=== PATIENT | male | born 1950 | race Caucasian/White ===

== ENCOUNTER 2021-07-06 07:03 | Day surgery (SDC) | payer OTHER ==
[2021-07-06 07:30] VITALS: BP 199/101
--- NOTE | 2021-07-06 08:00 | NUR ---
PT TO ROOM 274 AMBULATORY WITH ANR NURSECARLOS. CONSENT OBTAINED. VS OBTAINED. DR ALMODOVAR NOTIFIED. NEW ORDERS RECEIVED. IV ESTABLISHED. LABS OBTAINED AND SENT TO LAB FOR REFERENCE. ADMISSION ASSESSMENT COMPLETED AT THIS TIME. PT ORIENTED TO ROOM AND UNIT. CALL LIGHT IN REACH. WILL CONTINUE TOMONITOR.
[2021-07-06 08:34] LABS: HEMATOCRIT 37.4 % (39.0-50.0); HEMOGLOBIN 11.9 g/dl (14.0-18.0); IMMATURE GRANULOCYTES 0.4 % (0.0-5.0); MEAN CELL VOLUME 102.2 fL CALC (80.0-100.0); MEAN CORPUSCULAR HGB 32.5 pG CALC (26.0-32.0); MEAN CORPUSCULAR HGB CONC 31.8 g/dL CAL (32.0-36.0); NEUT# 5.21 thou/uL (1.82-7.42); RED BLOOD COUNT 3.66 mill/uL (4.70-6.10); RED CELL DISTRI WIDTH 12.7 % (11.5-15.5)
[2021-07-06 08:43] LABS: ALBUMIN 4.2 g/dL (3.2-5.0); ALKALINE PHOSPHATASE 87 u/l (38-126); ANION GAP 11 (6-22 (CALC)); BILIRUBIN, TOTAL 0.6 mg/dL (0.0-1.4); BUN 13 mg/dL (8-23); BUN/CREATININE RATIO 18 (12-20 (CALC)); CARBON DIOXIDE 29 mmol/l (22-30); CHLORIDE 100 mmol/l (95-108); CREATININE 0.7 mg/dL (0.7-1.3); GFR > 60 ML/MIN (>=60 (CALC)); GFR FOR AFR.AMER. > 60 ML/MIN (>=60 (CALC)); POTASSIUM 4.2 mmol/l (3.5-5.1); SGOT/AST 31 u/l (19-48); SODIUM 136 mmol/l (137-146); TOTAL PROTEIN 7.6 g/dL (6.3-8.2)
[2021-07-06 09:30] VITALS: BP 180/90
[2021-07-06] MEDS ORDERED: LISINOPRIL10 MG PO (09:51)
--- NOTE | 2021-07-06 10:00 | NUR ---
VS REASSESSED. DR ALMODOVAR NOTIFIED. NEW ORDERS RECEIVED.
--- NOTE | 2021-07-06 12:20 | NUR ---
PTTO ANR PROCEDURE VIA BED.
--- NOTE | 2021-07-06 12:30 | NUR ---
PT WAS TRANSPORTED DOWN VIA BED FOR ANR PROCEDURE
--- NOTE | 2021-07-06 17:40 | NUR ---
PT RETURNED TO FLOOR VIA BED IN STABLE CONDITION ACCOMPANIED BY ANR STAFF AND CHOIR TEACHER.
[2021-07-06 18:05] VITALS: BP 140/81
[2021-07-06 18:20] VITALS: BP 153/94
[2021-07-06 18:35] VITALS: BP 155/92
[2021-07-06 18:50] VITALS: BP 160/67
--- NOTE | 2021-07-06 20:00 | NUR ---
PTIN BED AT THIS TIME. REPORT RECEIVED FROM OFF GOING DAY SHIFT. PT NOTED TO BE VERY ANXIOUS/RESTLESS. MEDICATEDPT AT 1906 WITH ATIVAN 2MG IV. PTTOLERATED WELL. PT HAS NEEDED TO BE SUCTIONED X 2 FOR PHLEM NOTEDIN THE BACK OF HIS THROAT. PT TOLERATED SUCTIONING WELL. NO S/S OF DISTRESS NOTED. SLIGHT DIAPHORESIS NOTED, COOL CLOTH APPLIED TO PT HEAD FOR COMFORT. WILL MONITOR FOR S/S OF WITHDRAWL. SAFETY PRECAUTIONS IN PLACE, BED IN LOW POSITION, CALL LIGHT WITHIN REACH, BED ALARM ACTIVATED. ASSIGNED COURSEWARE DEVELOPER IS WATCHING PATIENT IN DOORWAY FOR ADDED SAFETY AND MONITORING
--- NOTE | 2021-07-07 00:23 | NUR ---
PT IS RESTING QUIETLY WITH SLIGHT RESTLESSNESS NOTED. PT IS NOTED TO BEUNABLE TO SWALLOW EFECTIVELY, FREQUENT SUCTION INDICATED. PER ASSISTANT COMMUNITY MANAGER, HOLD PO MEDICATIONS AT THIS TIME. IV LORAZEPAM TO BE ADMINSTERED TO CONTROL ANY SYMPTOMSOFWITHDRAWL NOTED. PT DOES HAVE SOME DIAPHORESIS ALONG WITH RESTLESSNESS. WILL MONITOR FOR WORSENING S/S. SAFETY PRECAUTIONS IN PLACE, CALL LIGHT WITHIN REACH, BED IN LOW POSITION, BED ALARM ACTIVATED. ASSISTANT COMMUNITY MANAGER IS SITTING OUTSIDE PT ROOM MONITORING HIM AT THIS TIME.
--- NOTE | 2021-07-07 02:37 | NUR ---
NOTED PT GAGGING AND DRY HEAVING, SUCTION UTILIZED. ADMINSTERED 8MG OF ZOFRAAN IV FOR DRY HEAVING. PT PLACED IN RESCUE POSITION ON RIGHT SIDE. LARGE AMOUNT OF PHLEM SUCTIONED FROM THROAT. IRRIGATION LABORER AT BEDSIDE. SAFETY PRECAUTIONS REMAIN IN PLACE. WILL MONITOR.
[2021-07-07 04:05] VITALS: BP 171/87
--- NOTE | 2021-07-07 04:45 | NUR ---
ATTEMPTED TO ADMINSTER PO MEDS. AT THIS TIME PT IS STILL NOT SWALLOWING WELL, ENCOUIRAGED PO FLUIDS AND CRUSHED MEDICATIONS INTO PUDDING PER POLISHER APPRENTICE INSTRUCTIONS. PT IS NOT TAKING IN FLUIDS, STILL GAGGING ON SMALL AMOUNTS OF PHLEM REQUIRING SUCTION. WILL ATTEMPT TO ADMINSTER MEDS AGAIN IN A LITTLE WHILE. SAFETY PRECAUTIONS REMAIN IN PLACE, CALL LIGHT WITHIN REACH, BED IN LOW POSITION, BED ALARM ON. WILL CONTINUE TO MONITOR FOR ANY COMPLICATIONS.
--- NOTE | 2021-07-07 06:09 | NUR ---
PT REMAINS TOO LETHARGIC TO TAKE HIS MEDICATIONS, PT ISNOT SWALLOWING ANY FLUIDS. NOTED THAT PT ISNOW SWALLOWINGHIS SALIVA BUT WILL NOT SWALLOW ANYTHING ELSE. MEDICATIONS DESTROYED WITH WITNESS. FILM VAULT SUPERVISOR AWARE AND HE HASINDICATED HE WILL PUT NEW ORDERS IN FOR MEDICATIONS AT A LATER TIME. WILL MONITOR
--- NOTE | 2021-07-07 06:34 | NUR ---
AFTER MUCH INSISTENCE, PT FINALLY CAME AROUND AND WASMORE ALERT THAN PREVIOUSLY. PT WASABLE TO TAKE PO FLUIDS AND THEN WAS ABLE TO TAKE PO MEDICATIONS PER ORDER. MANAGER OPERATIONS RESEARCH AWARE THAT MEDS WERE GIVEN LATER THAN SCHEDULED. PT TOLERATED WELL. NO S/S OF CHOKING/ASPIRATION NOTED. SAFETY MEASURES REMAIN IN PLACE. WILL MONITOR
[2021-07-07 06:37] LABS: ANION GAP 16 (6-22 (CALC)); BUN 13 mg/dL (8-23); BUN/CREATININE RATIO 21 (12-20 (CALC)); CHLORIDE 104 mmol/l (95-108); CREATININE 0.6 mg/dL (0.7-1.3); GFR > 60 ML/MIN (>=60 (CALC)); GFR FOR AFR.AMER. > 60 ML/MIN (>=60 (CALC)); MAGNESIUM 1.8 mg/dL (1.6-2.3); POTASSIUM 4.2 mmol/l (3.5-5.1); SODIUM 137 mmol/l (137-146)
[2021-07-07 06:38] LABS: CARBON DIOXIDE 21 mmol/l (22-30)
--- NOTE | 2021-07-07 07:00 | NUR ---
PT REPORT RECEIVED FROM NIGHT NURSENISHA
--- NOTE | 2021-07-07 08:00 | NUR ---
PT WAS FOUND RESTING IN BED;PT APPEARS VERY DROWSY;VS AND ASSESSMENT WERE COMPLETED;HEART SOUNDS ARE REGULAR IN RATE AND RHYTHM;LUNG SOUNDS ARE CLEAR;RESPIRATIONS ARE EVEN AND UNLABORED ON O2@2L VIA NC;ABDOMEN IS SOFT WITH ACTIVE BS PRESENT IN ALL QUADRANTS;PT IS SLIGHTLY DIAPHORETIC AND RESTLESS AT THIS TIME;VINCENT MORRELL IS AWARE;#20G IV IN RH IS RUNNING LR@75ML/HR;IV SITE IS PATENT AND APPEARS FREE OF COMPLICATIONS AT THIS TIME;#18G IV IN LH IS SL,PATENT AND APPERS FREE OF COMPLICATIONS WELL;SAFETY PRECAUTIONS IN PLACE;BED ALARM ON AND IN LOWEST POSITION;CALL LIGHT WITHIN REACH;WILL CONTINUE TO MONITOR CLOSELY.
--- NOTE | 2021-07-07 09:00 | NUR ---
PT MORNING MEDICATIONS WERE HELD PER VINCENT MORRELL AT THIS TIME;PROTONIX IV WAS STILL GIVEN SCHEDULED;PT WAS CLEANED UP OF INCONTINENT URINE AT THIS TIME WELL;PT CONTINUES TO REST COMFORTABLY WITH BED ALARM ON AND IN LOWEST POSITION;WILL CONTINUE TO MONITOR CLOSELY
[2021-07-07 10:00] VITALS: BP 164/74
--- NOTE | 2021-07-07 12:15 | NUR ---
PT CLEANED UP OF LOOSE BM AND BED CHANGE DONE;PT RESTING COMFORTABLY AT THIS TIME;SAFETY PRECAUTIONS IN PLACE;BED ALARM ON AND IN LOWEST POSITION;CALL LIGHT WITHIN REACH;WILL CONTINUE TO MONITOR.
--- NOTE | 2021-07-07 12:20 | NUR ---
AND VINCENT MORRELL AT BEDSIDE WITH PT
[2021-07-07 14:00] VITALS: BP 178/85
[2021-07-07 15:25] VITALS: BP 162/75
--- NOTE | 2021-07-07 16:08 | NUR ---
PT IS SLEEPING IN BED;O2 VIA NC HAS BEEN REMOVED AND O2 SATS ARE STABLE @98%;RESPIRATIONS ARE EVEN AND UNLABORED;#20G IV IN IS INFUSING LR WITHOUT DIFFICULTIES;IV SITE IS PATENT AND APPEARS FREE OF COMPLICATIOMS AT THIS TIME;SAFETY PRECAUTIONS IN PLACE;BED ALARM ON AND IN LOWEST POSITION;CALL LIGHT WITHOUT REACH;WILL CONTINUE TO MONITOR.
--- NOTE | 2021-07-07 17:00 | NUR ---
PT AMBULATED WITH ASSISTANCE TO BEDSIDE COMMODE;PT HAD A MODERATE LOOSE BM;PT RETURNED TO BED AND IS RESTING COMFORTABLY AT THIS TIME;SAFETY PRECAUTIONS IN PLACE;BED ALARM ON AND IN LOWEST POSITION;WILL CONTINUE TO MONITOR CLOSELY
--- NOTE | 2021-07-07 18:15 | NUR ---
PT REMOVED HIS LH IV EARLIER IN THE DAY, BUT MAINTAINED HIS IV IN HIS RH WITH LR RUNNING;PT WAS REMOVING HIS RH IV JUST I STEPPED IN THE ROOM;PETROS KAUR WAS NOTIFIED AND HE STATED THAT WE WOULD NOT NEED TO START ANOTHER IV AT THIS TIME, JUST ENCOURAGE ORAL FLUID INTAKE;WILL CONTINUE TO MONITOR.
--- NOTE | 2021-07-07 19:00 | NUR ---
PT WAS ABLE TO DRINK A GINGERALE AND EAT A FRUIT CUP FROM HIS DINNER TRAY;PT TOLERATED WELL
--- NOTE | 2021-07-07 19:08 | NUR ---
AT BEDSIDE WITH PT
--- NOTE | 2021-07-07 20:06 | NUR ---
PT PHYSICIAN JUST MADE ROUNDS ON PT, NO NEW ORDERS RECIEVED AT THIS TIME. PER PHYSICIAN POSSIBLE DISCHARGE TOMORROW. PHYSICIAN INDICATED TO ENCOURAGE FLUIDS AND FOOD WITH PT. SAFETY PRECAUTIONS REMAIN IN PLACE, BED IN LOW POSITION, CALLLIGHT WITHIN REACH, BED ALARM SET. INSTRUCTED PT TO USE CALL LIGHT WHEN HE NEEDS TO GO TO THE TOILET. PT INDICATED UNDERSTANDING. WILL MONITOR
--- NOTE | 2021-07-07 20:15 | NUR ---
PTPULLEDOUT BOTH OF HIS IV'S DURING DAY SHIFT TODAY. THE ONLY MEDICATIONS THE PT HAS ORDERED AT PRN IV MEDICATIONS. PHONE CALL PLACED TO DR. ALMODOVAR ADVISING OF THE NEED FOR PRN PO MEDS OR PRN IM MEDS. PENDING RETURN CALL AT THIS TIME. PT IS CALM AT THISTIME BUT IS REQUESTING SOMETHING TO HELP HIM SLEEP. WILL MONITOR
[2021-07-07 20:45] VITALS: BP 185/88
[2021-07-07 23:53] VITALS: BP 177/64
--- NOTE | 2021-07-07 23:55 | NUR ---
PT RESTING QUIETLY AT THIS TIME. BREATHING EVEN AND UNLABORED. FREQUENT LOOSE STOOLING NOTED. NO COMPLAINTS VOICED. DENIES PAIN. PT VERY DROWSY. SAFETY PRECUATIONS REMAIN IN PLACE, BED IN LOW POSITION, CALLLIGHT WITHIN REACH, BEDSIDE COMMODE CLOSE TO BED, AND BED ALARM SET. WILL MONITOR
--- NOTE | 2021-07-08 01:46 | NUR ---
PT NOTEDTO BECOME INCREASINGLY RESTLESS AND REPORTED THAT HE IS HAVING DIFFICULTY SLEEPING. PT HAS ALSO BEEN REFUSING TO DRINK PO FLUIDS. NEW IV STARTED TO LAC DUE TO NEED FOR FLUIDS AND ADMINSTRQATION OF ATIVAN. PTTOLERATED WELL. RESTING QUIETLY AT THIS TIME. WILL CONTINUE TO MONITOR
--- NOTE | 2021-07-08 03:57 | NUR ---
PT RESTING QUIETLY, VOIDED VIA THE URINAL 200ML WITH MINIMAL STAFF ASSIST, URINE NOTEDTO BE DARK YELLOW IN COLOR. ORDERED PRN LACTATED RINGERS RESTARTED VIA IV DUE TO PT NOT TAKING IN ANY PO FLUIDS THIS SHIFT. LR RUNNING AT 50ML/HR VIA IV TO PROMOTE HYDRATION. PT TOLERATING WELL. B/P SLIGHTLY ELEVATED @ 153/91. AWARE OF HTN HX. PT REAMINS ON RA 99%. SAFETY PRECAUTIONS REMAIN IN PLACE, BED IN LOW POSITION, CALL LIGHT WITHIN REACH, BEDSIDE COMMODE CLOSE TO BED. PT DENIES PAIN AT THIS TIME. WILL MONITOR
[2021-07-08 04:13] VITALS: BP 153/91
--- NOTE | 2021-07-08 05:10 | NUR ---
IV SITE TO LAC NOTED TO BE DISLODGED. DID NOT START A NEW SITE. CATHTER INTACT FOLLOWING REMOVAL. FLUIDS HELD D/TNO IV ACCESS. PT TOOK ALMOST A FULL CUP OF WATER BY MOUTH, TOLERATED WELL. WILL PASS ON IN REPORT EVENTS OF THE SHIFT. SAFETY PRECAUTIONS REMAIN IN PLACE, BED IN LOW POSITION, CALLLIGHT WITHIN REACH, STAFF OUTSIDE PT ROOM. WILL MONITOR
--- NOTE | 2021-07-08 07:00 | NUR ---
PT REPORT RECEIVED FROM NIGHT NURSENISHA
[2021-07-08 07:30] VITALS: BP 160/87
--- NOTE | 2021-07-08 08:00 | NUR ---
PT AMBULATED TO BATHROOM WITH MINIMAL ASSISTANCE;UP TO BEDSIDE CHAIR;PT WAS ABLE TO DRINK A GINGERALE
--- NOTE | 2021-07-08 08:00 | NUR ---
PT WAS FOUND RESTING IN BED IN SEMI-BARCENAS'S POSITION;PT IS ALERT AND ORIENTED,BUT SOMEWHAT RESTLESS AT THIS TIME;PT IS REPORTING NO PAIN; ;VS AND ASSESSMENT WERE COMPLETED;HEART SOUNDS ARE REGULAR IN RATE AND RHYTHM;LUNG SOUNDS ARE CLEAR;RESPIRATIONS ARE EVEN AND UNLABORED ON RA;ABDOMEN IS SOFT WITH ACTIVE BOWEL SOUNDS IN ALL QUADRANTS;NO EDEMA NOTED;SKIN INTACT;SAFETY PRECAUTIONS IN PLACE;BED ALARM ON AND IN LOWEST POSITION;CALL LIGHT WITHIN REACH;PT INSTRUCTED TO CALL WITH ANY NEEDS OR CONCERNS;WILL CONTINUE TO MONITOR.
--- NOTE | 2021-07-08 08:15 | NUR ---
AT BEDSIDE WITH PT
--- NOTE | 2021-07-08 08:45 | NUR ---
PT WAS ABLE TO EAT SOME BREAKFAST;PT AMBULATED TO BATHROOM WITH MINIMAL ASSISTANCE; AT BEDSIDE PREPARING PT FOR DISCHARGE;PT WAS ASSISTED WITH DRESSING FOR DISCHARGE HOME;
[2021-07-08 09:10] VITALS: BP 164/92
--- NOTE | 2021-07-08 09:29 | NUR ---
Discharge instructions given. Patient verbalizes understanding of same. Discharged in stable condition via Wheelchair to Home with family. All belongings sent with pt. DISCHARGE PACKET WAS GIVEN TO PT;DISCHARGE INSTRUCTIONS WERE GIVEN BY ANR PHYSICIAN;SIGNATURE WAS OBTAINED;PT WILL BE TRANSPORTED HOME WITH SPOUSE PT WAS TRANSPORTED IN STABLE CONDITION VIA WC TO [facility] ACCOMPANIED BY CARE REP;ALL PT BELONGINGS WERE SENT WITH PT;
== END 2021-07-08 09:29 | disposition home or self-care (01) | DRG 897 ==
LOC: ANR 07:03 → MS2 07:08 → ANR 11:31
PROVIDERS: Nurse Practitioner; ATTEND Anesthesiology
DX: F11.20 Opioid dependence, uncomplicated (principal)
CPT/HCPCS: J2060; J2354; S0164

== ENCOUNTER 2024-05-16 04:07 | Day surgery (SDC) | payer OTHER ==
[~2024-05-16] VITALS: Ht 177.8 cm; Wt 99.4 kg
[2024-05-16] VITALS (237 sets, daily range): BP systolic 90–183; BP diastolic 44–118
[~2024-05-16 04:07] MED LIST: LISINOPRIL10 MG PO
[2024-05-16] MEDS ORDERED: diazePAM 5 MG/TAB PO PRN ×2 (07:30→08:30)
[2024-05-16] MEDS ORDERED: cloNIDine HCL 0.1 MG/TAB PO PRN (07:30)
[2024-05-16] MEDS ORDERED: SCOPOLAMINE 1.5 MG DIS TD PRN (07:30)
[2024-05-16] MEDS ORDERED: LACTATED RINGER'S 1,000 ML IV PRN ×3 (07:30→19:00)
[2024-05-16] MEDS ORDERED: FAMOTIDINE 20 MG/TAB PO PRN (07:30)
[2024-05-16] MEDS ORDERED: CYANOCOBALAMIN 500 MCG/TAB ( B12) PO PRN (07:30)
[2024-05-16] MEDS ORDERED: PANTOPRAZOLE SODIUM Sesquihydr 40 MG/TAB PO PRN (07:30)
[2024-05-16] MEDS ORDERED: ALBUTEROL SULFATE 2.5 MG VIAL IN PRN (07:30)
[2024-05-16] MEDS ORDERED: ASCORBIC ACID 4,000 MG in SODIUM CHLORIDE 0.9% 1,000 ML IV SCH (08:00)
[2024-05-16 08:44] LABS: BASO% 0.4 % (0-3); EOS% 1.1 % (0-8); HEMOGLOBIN 10.7 g/dl (14.0-18.0); IMMATURE GRANULOCYTES 0.1 % (0.0-5.0); MEAN CORPUSCULAR HGB 35.8 pG CALC (26.0-32.0); MEAN CORPUSCULAR HGB CONC 32.4 g/dL CAL (32.0-36.0); NEUT# 5.71 thou/uL (1.82-7.42); NEUT% 76.4 % (42-76); RED BLOOD COUNT 2.99 mill/uL (4.70-6.10); RED CELL DISTRI WIDTH 12.6 % (11.5-15.5)
[2024-05-16 08:46] LABS: MEAN CELL VOLUME 110.4 fL CALC (80.0-100.0)
[2024-05-16 09:04] LABS: ALBUMIN 3.6 g/dL (3.2-5.0); BILIRUBIN, TOTAL 0.4 mg/dL (0.2-1.3); CREATININE 0.9 mg/dL (0.7-1.3); POTASSIUM 4.5 mmol/l (3.5-5.1); TOTAL PROTEIN 6.4 g/dL (6.3-8.2)
[2024-05-16] MEDS ORDERED: DiphenhydrAMINE HCL 50 MG/ML SDV IV PRN (09:25)
[2024-05-16] MEDS ORDERED: NALTREXONE HCL 50 MG/TAB VT PRN (09:25)
[2024-05-16] MEDS ORDERED: MAGNESIUM SULFATE HEPTAHYDRATE 100 ML IV PRN (09:25)
[2024-05-16] MEDS ORDERED: cloNIDine HYDROCHLORIDE 100 MCG/ML 10 ML INJ IV PRN (09:25)
[2024-05-16] MEDS ORDERED: ONDANSETRON HCl 4 MG/2 ML SDV IV PRN ×3 (09:25→19:00)
[2024-05-16] MEDS ORDERED: OCTREOTIDE ACETATE 100 MCG/VIAL SDV SC PRN (09:25)
[2024-05-16] MEDS ORDERED: cloNIDine HCL 0.1 MG/TAB VT PRN (09:25)
[2024-05-16] MEDS ORDERED: STERILE WATER FOR IRRIGATION 1,000 ML BTL IR PRN (09:25)
[2024-05-16] MEDS ORDERED: THIAMINE HCL 100 MG/ML 2ML VIAL IV PRN (09:25)
[2024-05-16] MEDS ORDERED: LIDOCAINE HCL 1% (10MG/ML) 100 MG/10 ML MDV VT PRN ×2 (09:25)
[2024-05-16] MEDS ORDERED: LIDOCAINE HCL 1% (10MG/ML) 100 MG/10 ML MDV IV PRN (09:25)
[2024-05-16] MEDS ORDERED: DEXAMETHASONE SODIUM PHOSPHATE PF 10 MG/ML SDV IV PRN ×2 (09:25→19:00)
[2024-05-16] MEDS ORDERED: SUCCINYLCHOLINE CHLORIDE 20 MG/ML 10ML VIAL IV PRN (09:25)
[2024-05-16] MEDS ORDERED: PROPOFOL 100 ML IV PRN (09:25)
[2024-05-16] MEDS ORDERED: PROPOFOL 10 MG/ML 100ML VIAL IV PRN (09:25)
[2024-05-16] MEDS ORDERED: MIDAZOLAM HCL 2 MG/2 ML VIAL IV PRN (09:25)
[2024-05-16] MEDS ORDERED: ROCURONIUM BROMIDE 10 MG/ML 5ML VIAL IV PRN (09:25)
[2024-05-16] MEDS ORDERED: diazePAM 5 MG/TAB VT PRN (09:25)
[2024-05-16] MEDS ORDERED: POTASSIUM CHLORIDE 20 MEQ/100 ML BAG IV PRN (09:25)
[2024-05-16] MEDS ORDERED: CLONIDINE0.1 MG PO (17:11)
[2024-05-16] MEDS ORDERED: NALTREXONE50 MG PO (17:11)
[2024-05-16] MEDS ORDERED: KLONOPIN2 MG PO (17:12)
[2024-05-16] MEDS ORDERED: KETOROLAC TROMETHAMINE 30 MG/ML SDV IV SCH (18:00)
[2024-05-16] MEDS ORDERED: LIDOCAINE HCL 1% (10MG/ML) 100 MG/10 ML MDV IV SCH (18:00)
[2024-05-16] MEDS ORDERED: ACETAMINOPHEN 1,000 MG/100 ML VIAL IV SCH (18:00)
[2024-05-16] MEDS ORDERED: HALOPERIDOL LACTATE 5 MG/ML SDV IV PRN (19:00)
[2024-05-16] MEDS ORDERED: KETOROLAC TROMETHAMINE 30 MG/ML SDV IV PRN (19:00)
[2024-05-16] MEDS ORDERED: PROMETHAZINE HCL 25 MG in SODIUM CHLORIDE 0.9% 50 ML IV PRN (19:00)
[2024-05-16] MEDS ORDERED: ACETAMINOPHEN 500 MG TAB PO PRN (19:00)
[2024-05-16] MEDS ORDERED: ACETAMINOPHEN 1,000 MG/100 ML VIAL IV PRN (19:00)
[2024-05-16] MEDS ORDERED: PROMETHAZINE HCL 12.5 MG in SODIUM CHLORIDE 0.9% 50 ML IV PRN (19:00)
[2024-05-16] MEDS ORDERED: diazePAM 10 MG/2 ML VIAL IV PRN (21:00)
[2024-05-16] MEDS ORDERED: PATIENT' OWN MED CONTROLLED 1 EA DOSE IV PRN (21:00)
[2024-05-16] MEDS ORDERED: cloNIDine HCL 0.1 MG/TAB PO SCH (23:00)
[2024-05-16] MEDS ORDERED: clonazePAM 1 MG/TAB PO SCH (23:00)
[2024-05-17] MEDS ORDERED: cloNIDine HCL 0.1 MG/TAB PO PRN (04:00)
[2024-05-17] MEDS ORDERED: clonazePAM 1 MG/TAB PO PRN ×2 (04:00→08:00)
[2024-05-17 04:04] VITALS: BP 178/78
[2024-05-17 05:26] LABS: HEMOGLOBIN 11.1 g/dl (14.0-18.0); IMMATURE GRANULOCYTES 0.1 % (0.0-5.0); LYMPH% 5.3 % (15-41); MEAN CELL VOLUME 109.7 fL CALC (80.0-100.0); MEAN CORPUSCULAR HGB 35.8 pG CALC (26.0-32.0); MEAN CORPUSCULAR HGB CONC 32.6 g/dL CAL (32.0-36.0); MONO% 1.1 % (2-13); NEUT# 6.82 thou/uL (1.82-7.42); NEUT% 93.5 % (42-76); RED BLOOD COUNT 3.1 mill/uL (4.70-6.10); RED CELL DISTRI WIDTH 12.5 % (11.5-15.5)
[2024-05-17 05:41] LABS: ALBUMIN 3.4 g/dL (3.2-5.0); BILIRUBIN, TOTAL 0.5 mg/dL (0.2-1.3); CREATININE 0.8 mg/dL (0.7-1.3); MAGNESIUM 2.3 mg/dL (1.6-2.3); POTASSIUM 4.8 mmol/l (3.5-5.1); TOTAL PROTEIN 6.1 g/dL (6.3-8.2)
[2024-05-17] MEDS ORDERED: NALTREXONE HCL 50 MG/TAB PO SCH (08:00)
[2024-05-17] MEDS ORDERED: ACETAMINOPHEN 325 MG/TAB PO SCH (08:00)
[2024-05-17] MEDS ORDERED: cloNIDine HCL 0.1 MG/TAB PO SCH ×2 (08:00→21:00)
[2024-05-17] MEDS ORDERED: PANTOPRAZOLE SODIUM Sesquihydr 40 MG/TAB PO SCH (08:00)
[2024-05-17 08:25] VITALS: BP 152/75
[2024-05-17] MEDS ORDERED: ACETAMINOPHEN 500 MG TAB PO PRN (09:00)
[2024-05-17] MEDS ORDERED: MAGNESIUM OXIDE 400 MG/TAB PO PRN (09:00)
[2024-05-17] MEDS ORDERED: Cholecalciferol 2,000 UNIT/TAB PO PRN (09:00)
[2024-05-17 14:06] VITALS: BP 137/56
[2024-05-17] MEDS ORDERED: clonazePAM 1 MG/TAB PO SCH (21:00)
[2024-05-17 21:08] VITALS: BP 150/84
[2024-05-18 04:13] VITALS: BP 149/83
[2024-05-18 05:46] LABS: HEMATOCRIT 33.5 % (39.0-50.0); HEMOGLOBIN 10.9 g/dl (14.0-18.0); MEAN CORPUSCULAR HGB 36.5 pG CALC (26.0-32.0); MEAN CORPUSCULAR HGB CONC 32.5 g/dL CAL (32.0-36.0); RED BLOOD COUNT 2.99 mill/uL (4.70-6.10); RED CELL DISTRI WIDTH 12.9 % (11.5-15.5)
[2024-05-18 06:11] LABS: ALBUMIN 3.4 g/dL (3.2-5.0); BILIRUBIN, TOTAL 0.7 mg/dL (0.2-1.3); CREATININE 0.7 mg/dL (0.7-1.3); MAGNESIUM 1.9 mg/dL (1.6-2.3); POTASSIUM 3.9 mmol/l (3.5-5.1); TOTAL PROTEIN 6.3 g/dL (6.3-8.2)
[2024-05-18 07:20] VITALS: BP 116/47
[2024-05-18] MEDS ORDERED: NALTREXONE HCL 50 MG/TAB PO SCH (08:00)
[2024-05-18] MEDS ORDERED: POTASSIUM CHLORIDE 20 MEQ/TAB PO SCH (10:30)
[2024-05-18] MEDS ORDERED: chlordiazePOXIDE HCL 25 MG CAP PO SCH (10:30)
[2024-05-18] MEDS ORDERED: MULTIPLE VITAMIN 10 ML,THIAMINE HCL 100 MG in DEXTROSE 5% / 0.9% NACL 1,000 ML IV PRN (11:30)
[2024-05-18] MEDS ORDERED: ACETAMINOPHEN 500 MG TAB PO PRN (14:30)
[2024-05-18] MEDS ORDERED: MAGNESIUM OXIDE 400 MG/TAB PO PRN (14:30)
[2024-05-18] MEDS ORDERED: Cholecalciferol 2,000 UNIT/TAB PO PRN (14:30)
== END 2024-05-18 14:47 | disposition home or self-care (01) | DRG 897 ==
LOC: ANR 04:07 → MS2 04:08 → ANR 10:00
PROVIDERS: ATTEND Anesthesiology
DX: F11.20 Opioid dependence, uncomplicated (principal)
CPT/HCPCS: J0131; J1100; J2354; J3475